=== PATIENT | female | born 1975 | race African-American/Black ===

== ENCOUNTER 2018-12-24 20:45 | Emergency (ER) | payer OTHER ==
[~2018-12-24] VITALS: Ht 165.1 cm; Wt 136.8 kg
[2018-12-24 20:52] VITALS: BP 147/99
--- NOTE | 2018-12-24 22:05 | NUR ---
DR ORTIZ AT BEDSIDE WITH PT
== END 2018-12-24 22:36 | disposition home or self-care (01) ==
LOC: ER 20:46
DX: S61.032A Puncture wound without foreign body of left thumb without damage to nail, initial encounter (principal); W46.0XXA Contact with hypodermic needle, initial encounter; Y93.89 Activity, other specified; Y92.89 Other specified places as the place of occurrence of the external cause; Y99.0 Civilian activity done for income or pay
CPT/HCPCS: 99281